=== PATIENT | male | born 1955 | race Caucasian/White ===

== ENCOUNTER 2022-09-22 11:56 | Inpatient (IN) | payer OTHER ==
[2022-09-22 13:34] VITALS: BMI 19.5
[2022-09-22] MEDS ORDERED: P-EPHED 60MG/TRIPROLIDI 2.5MG TABLET PO PRN (14:35)
[2022-09-22] MEDS ORDERED: BISMUTH SUBSALICYLATE 524 MG/30 ML PO PRN (14:35)
[2022-09-22] MEDS ORDERED: IBUPROFEN 400 MG TABLET (FP) PO PRN (14:35)
[2022-09-22] MEDS ORDERED: MAGNESIUM HYDROX 2400MG/30ML ORAL SUSPENSION 30 ML CUP PO PRN (14:35)
[2022-09-22] MEDS ORDERED: ONDANSETRON *ODT* 4 MG TABLET SL PRN (14:35)
[2022-09-22] MEDS ORDERED: IBUPROFEN 600 MG TABLET (FP) PO PRN (14:35)
[2022-09-22] MEDS ORDERED: BENZONATATE 200 MG CAPSULE PO PRN (14:35)
[2022-09-22] MEDS ORDERED: POLYETHYLENE GLYCOL (HEALTHYLAX) 3350 17 GM PACKET PO PRN (14:35)
[2022-09-22] MEDS ORDERED: LOPERAMIDE HCL 2 MG CAPSULE PO PRN (14:35)
[2022-09-22] MEDS ORDERED: guaiFENesin 600 MG TABLET.ER (FP) PO PRN (14:35)
[2022-09-22] MEDS ORDERED: BENZOCAINE/MENTHOL (CHLORASEPTIC ) LOZENGE MM PRN (14:35)
[2022-09-22] MEDS ORDERED: MAG HYDROX/AL HYDROX/SIMETH 30 ML UNIT-DOSE CUP PO PRN (14:35)
[2022-09-22] MEDS ORDERED: ACETAMINOPHEN 325 MG TABLET (FP) PO PRN (14:35)
[2022-09-22] MEDS: cloNIDine HCL 0.1 MG TABLET PO PRN (17:13)
[2022-09-22] MEDS ORDERED: LORazepam 1 MG TABLET PO PRN (18:28)
[2022-09-22] MEDS: MELATONIN 5 MG TABLETS PO SCH (22:16)
[2022-09-22] MEDS: THIAMINE HCL 100 MG TABLET (FP) PO SCH (22:16)
[2022-09-22] MEDS: LORazepam 2 MG TABLET PO SCH (22:17)
[2022-09-23] MEDS: LORazepam 2 MG TABLET PO SCH ×4 (05:19→22:19)
[2022-09-23] MEDS: cloNIDine HCL 0.1 MG TABLET PO PRN (05:21)
[2022-09-23] MEDS: PRENATAL VITAMINS W/ FOLIC ACID TABLET (FP) PO SCH (10:17)
[2022-09-23 17:18] LABS: HEMATOCRIT 47.9 % (35.4-49); HEMOGLOBIN 16.7 GM/dL (11.7-16.9); MCH 32.9 pg (25.7-33.7); MEAN CELL VOLUME 94.1 fl (80-96); MEAN PLT VOLUME 7.7 fl (7.5-11.1); PLATELET COUNT 217 10^3/uL (134-434); RBC 5.09 M/mm3 (4.00-5.60); RDW 16.2 % (11.9-15.9); WHITE BLOOD COUNT 7.6 K/mm3 (4.0-10.0)
[2022-09-23 17:21] LABS: POTASSIUM 3.9 mmol/L (3.5-5.1)
[2022-09-23 17:34] LABS: ALBUMIN 3.4 g/dl (3.4-5.0); CALCIUM 9.5 mg/dL (8.5-10.1)
[2022-09-23 17:38] LABS: CREATININE 0.9 mg/dL (0.55-1.3)
[2022-09-23 17:39] LABS: TOT PROT 7.3 g/dl (6.4-8.2)
[2022-09-23 17:40] LABS: BILIRUBIN,TOTAL 0.6 mg/dL (0.2-1)
[2022-09-23] MEDS: MELATONIN 5 MG TABLETS PO SCH (22:19)
[2022-09-23] MEDS: THIAMINE HCL 100 MG TABLET (FP) PO SCH (22:19)
[2022-09-24] MEDS: LORazepam 1 MG TABLET PO SCH ×4 (05:33→22:16)
[2022-09-24] MEDS: cloNIDine HCL 0.1 MG TABLET PO PRN ×3 (05:35→22:15)
[2022-09-24] MEDS: PRENATAL VITAMINS W/ FOLIC ACID TABLET (FP) PO SCH (10:26)
[2022-09-24] MEDS: MELATONIN 5 MG TABLETS PO SCH (22:15)
[2022-09-24] MEDS: THIAMINE HCL 100 MG TABLET (FP) PO SCH (22:16)
[2022-09-25] MEDS ORDERED: LORazepam 0.5 MG TABLET PO PRN
[2022-09-25] MEDS: LORazepam 0.5 MG TABLET PO SCH ×4 (05:28→22:01)
[2022-09-25] MEDS: cloNIDine HCL 0.1 MG TABLET PO PRN (05:30)
[2022-09-25 05:55] VITALS: RESP 16
[2022-09-25] MEDS: PRENATAL VITAMINS W/ FOLIC ACID TABLET (FP) PO SCH (10:24)
[2022-09-25] MEDS: MELATONIN 5 MG TABLETS PO SCH (22:01)
[2022-09-25] MEDS: THIAMINE HCL 100 MG TABLET (FP) PO SCH (22:01)
[2022-09-26] MEDS ORDERED: LORazepam 0.5 MG TABLET PO ONE (05:00)
[2022-09-26 06:07] VITALS: PULSE 62; TEMP 97.7
[2022-09-26 07:51] VITALS: BP 170/84
== END 2022-09-26 09:30 | disposition home or self-care (01) | DRG 897 ==
LOC: YASAS 11:56 → Y3N 14:58
PROVIDERS: ADMIT Allergy & Immunology; ATTEND Surgery
PROC: HZ2ZZZZ Detoxification Services for Substance Abuse Treatment (ICD-10-PCS; principal; 2022-09-22)
DX: F10.230 Alcohol dependence with withdrawal, uncomplicated (principal); F17.210 Nicotine dependence, cigarettes, uncomplicated; F41.9 Anxiety disorder, unspecified; F32.A Depression, unspecified; Z21 Asymptomatic human immunodeficiency virus [HIV] infection status
CPT/HCPCS: 36415; 80053; 85027; 86780; 87635; 87811